=== PATIENT | female | born 1975 | race Caucasian/White ===

== ENCOUNTER 2018-12-05 07:52 | Emergency (ER) | payer MEDICAID ==
[2018-12-05 08:30] LABS: ADD MAN DIFF? NO
[2018-12-05 08:39] LABS: BASOPHIL # 0.1 10^3/ul (0.0-0.1); BASOPHILS % 0.5 % (0.0-2.0); EOSINOPHILS # 0.2 10^3/ul (0.0-0.5); EOSINOPHILS % 1.7 % (0.0-7.0); HEMATOCRIT 42.9 % (37.0-47.0); HEMOGLOBIN 14.4 g/dl (12.0-16.0); LYMPHOCYTES # 2.1 10^3/ul (0.8-2.9); LYMPHOCYTES % 17.5 % (15.0-51.0); MEAN CORPUSCULAR HEMOGLOBIN 29.3 pg (29.0-33.0); MEAN CORPUSCULAR HGB CONC 33.6 g/dl (32.0-37.0); MEAN CORPUSCULAR VOLUME 87.4 fl (82.0-101.0); MEAN PLATELET VOLUME 10.1 fl (7.4-10.4); MONOCYTE # 0.7 10^3/ul (0.3-0.9); MONOCYTES % 5.8 % (0.0-11.0); NEUTROPHIL # 8.9 10^3/ul (1.6-7.5); NEUTROPHILS % 74.3 % (39.0-77.0); PLATELET COUNT 323 10^3/UL (140-415); RED BLOOD COUNT 4.91 10^6/ul (4.20-5.40); RED CELL DISTRIBUTION WIDTH 12.1 % (11.5-14.5)
[2018-12-05 09:13] LABS: ADD UMIC YES; UR ASCORBIC ACID NEGATIVE (NEGATIVE); UR BACTERIA FEW /HPF (NONE SEEN); UR BILIRUBIN (Dip) NEGATIVE (NEGATIVE); UR BLOOD (Dip) 3+ mg/dL (NEGATIVE); UR CLARITY CLEAR (CLEAR); UR COLOR YELLOW (YELLOW); UR GLUCOSE (Dip) NEGATIVE (NEGATIVE); UR KETONES (Dip) NEGATIVE (NEGATIVE); UR LEUKOCYTE ESTERASE (Dip) NEGATIVE Leu/ul (NEGATIVE); UR NITRITE (Dip) NEGATIVE (NEGATIVE); UR RBC 16 /HPF (0-5); UR SPECIFIC GRAVITY (Dip) 1.008 (1.003-1.030); UR SQUAMOUS EPITHELIAL CELL FEW /HPF (FEW); UR TOTAL PROTEIN (Dip) NEGATIVE (NEGATIVE); UR UROBILINOGEN (Dip) NEGATIVE (NEGATIVE); UR WBC 1 /HPF (0-5)
[2018-12-05 09:50] LABS: ABO/RH TYPE 1 1
== END 2018-12-05 10:41 | disposition home or self-care (01) ==
LOC: FTE 07:52
PROVIDERS: Pediatrics
DX: O20.9 Hemorrhage in early pregnancy, unspecified (principal); R10.2 Pelvic and perineal pain; Z3A.01 Less than 8 weeks gestation of pregnancy
CPT/HCPCS: 36415; 76801; 81001; 84702; 85025; 86900; 86901; 99285-25